=== PATIENT | male | born 1940 | race Caucasian/White ===

== ENCOUNTER 2016-10-04 13:08 | Inpatient (IN) ==
--- NOTE | 2016-10-04 13:40 | Emergency Department Note ---
Disposition Clinical Impression: CVA, old, ataxia, Ataxia, MAYKEL (acute kidney injury) CVA (cerebral vascular accident) Qualifiers: CVA mechanism: unspecified Qualified Code(s): I63.9 - Cerebral infarction, unspecified Disposition: Admitted As Inpatient Condition: Good Time of Disposition: 18:37 Dizziness HPI - General Chief Complaint: ED Dizziness Stated Complaint: Dizzy Time Seen by Provider: 10/04/16 13:12 Source: patient, EMS Mode of arrival: EMS Limitations: no limitations Nursing Notes Reviewed: Yes Vital Signs Reviewed: Yes - History of Present Illness HPI Narrative: 75-year-old male with a past history of hypertension, diabetes, CVAs, CABG ( ) presents to the ED via EMS with sudden onset dizziness. Patient lets that the half-way performing physical therapy and at the end of the session was asked to get up to do the last exercise. From a sitting position as he was starting to stand began to experience vertigo. He describes as the room is swimming. He denies any associated lightheadedness, feelings of passing out, chest pain, shortness of breath. Denies any changes in vision. Since then symptoms have subsided. Worse with sudden movements of the head particularly with extension. No sequelae of his CVAs he reports. Typically able to walk without much difficulty but since therapy unable to stand. He takes Coumadin. Denies any fall or loss of consciousness. Pt Subjective Complaint: dizziness, difficulty walking Onset (ago): hour(s) Timing: sudden onset Description: sense of movement, "room spinning" Improves with: remaining still Worsens with: movement, position Associated symptoms: Reports: ataxia, weakness. Denies: chest pain, confusion, diaphoresis, fever, chills, shortness of breath, syncope, vision changes, nausea , vomiting, palpitations - Related Data Home Medications Medication Instructions Recorded Confirmed Aspirin 81 mg PO DAILY 07/06/16 10/04/16 Atorvastatin [Lipitor] 10 mg PO HS 07/06/16 10/04/16 Carvedilol 3.125 mg PO BID 07/06/16 10/04/16 Ferrous Sulfate 325 mg PO DAILY 07/06/16 10/04/16 Insulin Glargine [Lantus] 10 unit SQ HS 07/06/16 10/04/16 Lisinopril 2.5 mg PO DAILY 07/06/16 10/04/16 Nitroglycerin [Nitrostat] 0.4 mg SL Q5M PRN 07/06/16 10/04/16 Omeprazole [PriLOSEC] 20 mg PO DAILY 07/06/16 10/04/16 Paroxetine HCl [Paxil] 10 mg PO QAM 07/06/16 10/04/16 Benzocaine/Menthol [Chloraseptic 1 each MM Q2H PRN 10/04/16 10/04/16 Max Lozenge] Allergies Allergy/AdvReac Type Severity Reaction Status Date / Time morphine AdvReac Unknown Verified 10/04/16 15:00 All systems ED: reviewed and negative except as stated. Constitutional: Denies: fever, chills Eyes: Denies: vision change Cardiovascular: Denies: chest pain, palpitations Respiratory: Denies: cough, dyspnea Gastrointestinal: Denies: abdominal pain, nausea, vomiting Musculoskeletal: Denies: back pain, neck pain Neurological: Reports: abnormal gait, vertigo. Denies: headache, weakness, numbness, confusion Past Medical History - Past Medical History Attestation: Yes The following information was validated with the patient. Source: patient Medical history: Reports: coronary artery disease, diabetes, hyperlipidemia Surgical history: Reports: other (CABG, partial amputation of the left foot.) Psychiatric history: Reports: no psych history - Social History Smoking Status: Former smoker Smokeless Tobacco Status: No Alcohol use: Reports: none Drug use: Reports: none Physical Exam - General Limitations: no limitations General appearance: alert, in no apparent distress - Head Head exam: atraumatic, normocephalic, normal inspection - Eye Eye exam: Present: normal appearance, PERRL, EOMI. Absent: scleral icterus, nystagmus - ENT ENT exam: normal exam, normal oropharynx, mucous membranes moist, TM's normal bilaterally - Neck Neck exam: Present: normal inspection, full ROM, trachea midline. Absent: tenderness - Chest Chest inspection: Present: normal inspection, symmetric chest wall rise. Absent : tenderness - Respiratory Respiratory exam: Present: normal lung sounds bilaterally. Absent: respiratory distress, wheezes - Cardiovascular Cardiovascular exam: Present: regular rate, normal rhythm, normal heart sounds. Absent: systolic murmur, diastolic murmur - Abdominal Exam Abdominal exam: Present: soft, Non-Tender, normal bowel sounds. Absent: tenderness, distention, guarding, rebound, rigidity - Extremities Exam Extremities exam: Present: normal inspection, full ROM, normal capillary refill. Absent: tenderness, pedal edema, calf tenderness - Back Exam Back exam: Present: normal inspection, full ROM. Absent: tenderness, vertebral tenderness - Neurological Exam Neurological exam: Present: alert, oriented X3, CN II-XII intact - Expanded Neurological Exam Patient oriented to: Present: person, place, time Speech: Present: fluid speech Cranial nerves: EOM function (II, III, IV, ): Normal, facial sensation (V): Normal, facial palsy (VII): Normal, spinal accessory function (XI): Normal, tongue deviation (XII): Normal Cerebellar function: finger to nose: Normal, heel to benitez: Normal Cerebellar function: ataxic gait Motor strength - LUE: 5/5 Motor strength - RUE: 5/5 Motor strength - LLE: 5/5 Motor strength - RLE: 5/5 Upper motor neuron exam: gabino neglect: Absent bilaterally, pronator drift: Absent bilaterally Sensory exam upper extremity: light touch: Normal Sensory exam lower extremity: light touch: Normal - Psychiatric Psychiatric exam: Present: normal affect, normal mood - Skin Skin exam: Present: warm, dry, intact, normal color Course Course Narrative: 75-year-old male history of cardiac bypass, CVA, insulin-dependent diabetes mellitus presents to the ED with sudden onset vertigo. This occurred suddenly at the end of his physical therapy session. Scribes as the room spinning. Currently he is unable to stand under his own power due to the dizziness. History of CVA in the past without any sequela. Neurologic exam is normal without any focal neural deficits. Normal finger to nose and heel to benitez without dysmetria. He does not have a vertical or horizontal nystagmus. Concerning for possible cerebellar or posterior infarct. Given his history of CVAs and coronary artery disease will check basic labs, troponin, EKG, and MRI of brain pending clearance. Patient is in agreement with plan. He is currently asymptomatic at rest and denies any nausea. - Reevaluation(s) Reevaluation #1: Repeat neurologic exam's unremarkable. However he continues to be unsteady upon standing. Brain MRI does not show an acute infarct, there are however chronic infarcts that appear nuisances prior MRI and likely visit October 2015. His creatinine is also elevated at 2 above his baseline. Troponins negative. EKG does not reveal any acute abnormalities. Impression CVA, MAYKEL, exertional syncope. He may need possible further workup with unsteady gait and dizziness. He comes from nursing rehab facility. He has received a total of 1L of fluids. Brain MRI 10/04/16 13:52 IMPRESSION: 1. No evidence of an acute infarct. 2. Chronic infarcts are noted in basal ganglia, thalami, and right paramidline of the negrito. The chronic infarct in the right paramidline of the negrito is new since the previous MRI on 04/08/2015. 3. There is cerebral and cerebellar parenchymal volume loss with moderate-severe chronic microvascular white matter ischemic disease. 4. There are multifocal areas of blooming artifact identified in bilateral cerebral hemispheres, likely related to sequela of small microhemorrhages, usually related to hypertension. 5. Stable ventriculomegaly. While this is likely related to involutional change, normal pressure hydrocephalus cannot be excluded. D/ / 10/04/2016 16:49:26 Tarun Strickland MD / [facility] Interpreting Provider: Tarun Strickland MD Time: 18:00 - Consultations Consultation #1: Spoke with Dr. Strickland, radiologist, regarding the MRI read of blooming artifact and new infarct in the right paramidline of the negrito since previous MRI 2014. The negrito infarct is chronic and likely occurred since last visit in 2015. Blooming artifact is likely due to nursing home hypertension and is common in this MRI sequence. Time: 17:15 Consultation #2: Spoke with on-call hospitalist aaron Mcdonald to admit for CVA, Vertigo, MAYKEL, exertional syncope. No further orders at this time Time: 18:03 Vital Signs Temperature 97.7 F 10/04/16 13:10 Pulse Rate 53 10/04/16 13:10 Respiratory Rate 18 10/04/16 13:10 Blood Pressure 130/68 10/04/16 13:10 O2 Sat by Pulse Oximetry 100 10/04/16 13:10 Temperature 97.7 F 10/04/16 13:10 Pulse Rate 65 10/04/16 18:27 Respiratory Rate 16 10/04/16 18:27 Blood Pressure 170/119 10/04/16 18:27 O2 Sat by Pulse Oximetry 97 10/04/16 18:27 Oxygen Delivery Oxygen Delivery Room Air Dizziness - Medical Records Medical records reviewed: Yes I reviewed the patient's medical records. - Lab Data Lab results reviewed: Yes I reviewed the patient's lab results. Result diagrams: 10/04/16 13:56 10/04/16 13:56 Lab Results 10/04/16 10/04/16 10/04/16 Range/Units 13:56 13:56 13:57 WBC 8.2 (4.3-11.1) K/mcL RBC 3.77 L (4.19-5.50) M/mcL Hgb 11.2 L (12.9-16.9) g/dL Hct 34.3 L (37.5-50.1) % MCV 91.0 (83.0-100.0) fL MCH 29.7 (28.0-33.3) pg MCHC 32.7 (31.6-35.5) g/dL RDW 12.8 (11.5-14.5) % Plt Count 181 (140-400) K/mcL MPV 10.0 (9.4-12.4) fL Immature Gran % 0.4 (0-4) % Seg Neutrophils % 73.7 % Lymphocytes % 16.1 % Monocytes % 5.5 % Eosinophils % 3.8 % Basophils % 0.5 % Neutrophils # 6.1 (1.6-8.9) K/mcL Lymphocytes # 1.3 (0.6-4.6) K/mcL Monocytes # 0.5 (0.0-1.3) K/mcL Eosinophils # 0.3 (0.0-0.6) K/mcL Basophils # 0.0 (0.0-0.2) K/mcL Sodium 139 (136-145) mEq/L Potassium 5.2 H (3.5-4.5) mEq/L Chloride 108 (98-109) mEq/L Carbon Dioxide 26 (19-29) mEq/L BUN 39 H (8-26) mg/dL Creatinine 2.01 H (0.72-1.25) mg/dL Est GFR ( Amer) 40 L (> 60) Est GFR (Non-Af Amer) 33 L (> 60) BUN/Creatinine Ratio 19 (6-26) Glucose 128 H (70-99) mg/dL Calculated Osmolality 299 (280-300) Calcium 8.9 (8.6-10.8) mg/dL Troponin I 0.00 (0-0.03) ng/mL - Radiology Data Radiology results reviewed: Yes I reviewed the patient's radiology results. Brain MRI 10/04/16 13:52 IMPRESSION: 1. No evidence of an acute infarct. 2. Chronic infarcts are noted in basal ganglia, thalami, and right paramidline of the negrito. The infarct in the right paramidline of the negrito is new since the previous MRI on 04/08/2015. 3. There is cerebral and cerebellar parenchymal volume loss with moderate-severe chronic microvascular white matter ischemic disease. 4. There are multifocal areas of blooming artifact identified, likely related to sequela of small microhemorrhages. 5. Stable ventriculomegaly. While this is likely related to involutional change, normal pressure hydrocephalus cannot be excluded. D/ / 10/04/2016 16:49:26 Tarun Strickland MD / [facility] Interpreting Provider: Tarun Strickland MD - EKG Data EKG attestation: Yes I reviewed and interpreted this EKG. EKG results narrative: EKG performed 1323 sinus bradycardia with first-degree AV block 50 bpm [place] interval is prolonged 212 Q waves in inferior leads, other intervals are within normal limits QRS 112 QT QTC 468 443. Compared to old EKG performed 06/30/2016 shows consistent findings sinus rhythm with consistent Q waves in inferior leads. No acute ischemic changes. Attestation Statement - Attestation Attestation: I examined this patient and my medical decision-making was reviewed with the NURSE'S ASSISTANT/PA/Advanced Practice Nurse/Resident Physician. I agree with the documented findings, disposition and treatment plan as described except to the extent set forth below. Patient presents to the emergency department with a chief complaint of dizziness. Send onset today while doing his rehabilitation at his nursing facility. States he was able to walk. History of stroke. Exam is awake and alert and neurologically intact. His extremities. No nystagmus. Plan. Cardiac workup with MRI.
[2016-10-04 14:10] LABS: Basophils % 0.5 %; Eosinophils # 0.3 K/mcL (0.0-0.6); Eosinophils % 3.8 %; Hematocrit 34.3 % (37.5-50.1); Hemoglobin 11.2 g/dL (12.9-16.9); Immature Granulocytes % 0.4 % (0-4); Lymphocytes # 1.3 K/mcL (0.6-4.6); Lymphocytes % 16.1 %; Mean Corpuscular HGB Conc 32.7 g/dL (31.6-35.5); Mean Corpuscular Hemoglobin 29.7 pg (28.0-33.3); Monocytes # 0.5 K/mcL (0.0-1.3); Monocytes % 5.5 %; Neutrophils # 6.1 K/mcL (1.6-8.9); Platelet Count 181 K/mcL (140-400); Red Blood Count 3.77 M/mcL (4.19-5.50); Red Cell Distribution Width 12.8 % (11.5-14.5); Segmented Neutrophils % 73.7 %
[2016-10-04 14:25] LABS: Calcium 8.9 mg/dL (8.6-10.8); Potassium 5.2 mEq/L (3.5-4.5)
[2016-10-04] MEDS ORDERED: 0.9 % Sodium Chloride 1,000 ML IVC ONE (14:48)
--- NOTE | 2016-10-04 21:33 | Internal Med History&Physical ---
Date of Encounter: 10/04/16 Time of Encounter: 21:30 Assessment and Plan (1) TIA (transient ischemic attack) Current visit: Yes Status: Acute Unclear etiology, but given patient's cardiac history, will obtain echocardiogram and carotid dopplers Consult neurology, appreciate recommendations Orthostatics obtained in ED was negative for hypotension Will do metabolic workup with B12, Folate, TSH PT/OT evaluation Qualifiers: Qualified Code(s): G45.9 - Transient cerebral ischemic attack, unspecified (2) Hypertension Current visit: Yes Status: Acute Will allow for permissive hypertension in setting of TIA He does have home Lisinopril and Coreg which are currently being held Qualifiers: Hypertension type: essential hypertension Qualified Code(s): I10 - Essential (primary) hypertension (3) CKD (chronic kidney disease) stage 3, GFR 30-59 ml/min Current visit: Yes Status: Chronic Cr of 2.01 upon admission, close to his baseline of 1.8 He does appear mildly dehydrated and has been started on maintenance fluids at 75 ml/hr over 1 L Repeat BMP in AM and avoid nephrotoxic agents (4) Frequent falls Current visit: No Status: Chronic Likely multifactorial given history of CVA and diabetic neuropathy Will obtain metabolic workup with B12, Folate, TSH (5) Anemia of chronic disease Current visit: Yes Status: Chronic Stable, no signs/symptoms of bleeding Will recheck levels in AM (6) DVT prophylaxis Current visit: No Status: Acute Heparin 5000 units BID Internal Medicine - H&P: HPI Chief complaint: Dizziness Admitted From: Long-term Nursing Facility Plans for Post Hospital Care: Transfer Skilled Nursing Care History of present illness: Mr. Rivera is a 75 year old male who presents to the emergency department with dizziness. He currently resides in [facility] and states that he developed sudden onset dizziness when he was performing physical therapy earlier this morning. He describes starting off at a sitting position and while trying to stand he became dizzy and felt the room was spinning. He does admit to having a difficult hearing out of both ears but denies any changes in his vision, losing consciousness, headache, chest pain, shortness of breath, nausea. He never had anything like this happen to past but does report a history of migraines and sustained a stroke 4 years ago without any residual deficits. He also reports a history of frequent falls, claiming to have fallen once to twice a month over the past 5 years. He reports the falls are a result of losing balance, and denies ever losing any consciousness or tripping. Of note , he does have history of bypass in 1989 and also in the but he is unsure of what time and will have stent was placed. He claims he was previously on Coumadin over a year ago for atrial fibrillation, but there is no documentation of this. Past Med Surg Social Fam HX - Past Medical History Medical history: coronary artery disease, diabetes, hyperlipidemia Psychiatric history: no psych history - Past Surgical History Surgical History: other - Social History Smoking Status: Former smoker Smokeless Tobacco Status: No Alcohol use: none Drug use: none - Family History Mother Living Status: Hx Family Endocrine Disorder: Yes (DM) Internal Medicine - H&P: Meds Aspirin 81 mg PO DAILY 07/06/16 [History] Atorvastatin [Lipitor] 10 mg PO HS 07/06/16 [History] Carvedilol 3.125 mg PO BID 07/06/16 [History] Ferrous Sulfate 325 mg PO DAILY 07/06/16 [History] Insulin Glargine [Lantus] 10 unit SQ HS 07/06/16 [History] Lisinopril 2.5 mg PO DAILY 07/06/16 [History] Nitroglycerin [Nitrostat] 0.4 mg SL Q5M PRN 07/06/16 [History] Omeprazole [PriLOSEC] 20 mg PO DAILY 07/06/16 [History] Paroxetine HCl [Paxil] 10 mg PO QAM 07/06/16 [History] Benzocaine/Menthol [Chloraseptic Max Lozenge] 1 each MM Q2H PRN 10/04/16 [ History] Allergies morphine Adverse Reaction (Verified 10/04/16 15:00) Unknown via ECF list All Systems PM: A 10-system review of systems was performed and is negative for pertinent findings except as documented above in the HPI. - Constitutional Constitutional: no chills, no fever(s), no night sweats - EENT Eyes: no change in vision, no discharge, no pain, no photophobia Ears: decreased hearing (chronic), no ear discharge, no ear pain, no tinnitus Nose, mouth and throat: no dysphagia, no nasal discharge, no neck pain, no sore throat - Cardiovascular Cardiovascular ROS IM: no chest pain, no diaphoresis, no dyspnea, no lightheadedness, no palpitations, no syncope - Respiratory Respiratory: no cough, no dyspnea, no wheezing, no excessive phlegm production - Gastrointestinal Gastrointestinal: no abdominal pain, no diarrhea, no hematemesis, no hematochezia, no melena, no nausea, no vomiting - Musculoskeletal Musculoskeletal ROS IM: no numbness, no tingling - Integumentary Integumentary IM: no rash, no unusual bruising - Neurological Neurological ROS: vertigo, no confusion, no convulsions, no focal weakness, no numbness, no tingling, no tremor(s), no weakness - Hematologic/Lymphatic Hematologic/Lymphatic: no easy bruising - Constitutional Vitals: Temp Pulse Resp BP Pulse Ox 97.6 F 47 18 179/72 98 10/04/16 20:03 10/04/16 20:03 10/04/16 20:03 10/04/16 20:03 10/04/16 20:03 General appearance: Present: cooperative, A&O X 3, pleasant, no acute distress, answers questions appropriately - Head Head exam: Present: atraumatic, normocephalic - Eye Eye exam: Present: EOMI, PERRL, conjuntiva pink, sclera anicteric. Absent: nystagmus - Neck Neck exam general surgery: Present: supple, trachea midline. Absent: lymphadenopathy - Respiratory Respiratory exam: Present: CTAB. Absent: accessory muscle use, rales, rhonchi, wheezes - Cardiovascular Cardiovascular exam: Present: bradycardia (regular rhythm), +S1, +S2. Absent: diastolic murmur, gallop, rubs, systolic murmur - GI/Abdominal GI/Abdominal exam: Present: normal bowel sounds, soft, no peritoneal signs. Absent: distended, tenderness - Extremities Exam Extremities exam: Present: warm, radial pulses palpable and symetrical. Absent : calf tenderness, cyanotic, pedal edema Additional comments: partial amputation of 4th and 5th digits of right foot, all toes on left foot amputated due to diabetic ulcers - Neurological Exam Neurological exam: Present: alert, CN II-XII intact, oriented X3, no focal deficits, strengths equal and symetr throughout (5/5 bilaterally upper and lower extremities). Absent: motor sensory deficit, pronater drift, facial droop , speech deficit - Expanded Neurological Exam Neurological exam expanded: Absent: expressive aphasia, inattentive Patient oriented to: Present: person, place, time Speech: Present: fluid speech Cranial Nerves: EOM's intact PM: Normal, nystagmus PM: Normal, tongue deviation PM: Normal Cerebellar function: finger to nose: Normal, heel to benitez: Normal Upper motor neuron: Paul neglect: Normal, pronator drift: Normal Neuro motor strength exam: LUE: 5, RUE: 5, LLE: 5, RLE: 5 Coma Scale Eye Opening: Spontaneous Coma Scale Motor Response: Obeys Commands Coma Scale Verbal Response: Oriented Coma Scale Total: 15 - Skin Skin exam: Present: dry, intact Internal Med - H&P Results - Labs CBC & Chem 7: 10/04/16 13:56 10/04/16 13:56
[2016-10-04] MEDS ORDERED: Naloxone 0.4 MG/ML INJ IVP PRN (21:41)
[2016-10-04] MEDS ORDERED: Ondansetron ODT 4 MG TAB.RAPDIS SL PRN (21:41)
[2016-10-04] MEDS ORDERED: Dextrose Gel 15 GM PO PRN ×2 (21:41)
[2016-10-04] MEDS ORDERED: Acetaminophen 325 MG TABLET PO PRN (21:41)
[2016-10-04] MEDS ORDERED: D5% in Water 1,000 ML IV PRN (21:41)
[2016-10-04] MEDS ORDERED: *HR* Dextrose 50 % in Water (Syg) 50 ML SYRINGE IVP PRN (21:41)
[2016-10-04] MEDS ORDERED: Nitroglycerin 0.4 MG TAB.SUBL SL PRN (21:51)
[2016-10-04] MEDS ORDERED: 0.9 % Sodium Chloride 1,000 ML IVC SCH (23:15)
[2016-10-04] MEDS ORDERED: Calcium Gluconate 1,000 MG in D5% in Water 100 ML IVPB ONE (23:18)
--- NOTE | 2016-10-04 23:30 | Event Note ---
Date of Encounter: 10/04/16 Time of Encounter: 23:20 Patient seen and examined with medical chemist. Patient presented with dizziness which he described at the spinning sensation, gate unsteadiness. The symptoms lasted till he arrived to the emergency room a few hours. He was hypertensive. Symptoms are suggestive of posterior circulation ischemia. Cerebellar signs were normal during my exam of the patient at 11 PM. I suspect that the symptoms are due to posterior circulation ischemia. MRI of the brain was performed shows no acute stroke. We will hold the blood pressure medications and allow for permissive hypertension. Check echocardiogram and carotid Doppler's. Patient has been on Coumadin for atrial fibrillation however he has been taken off it. It seems patient has frequent falls and that is probably the cause for discontinuation of Coumadin. We will check echocardiogram carotid Doppler's. Physical therapy occupational therapy healthcare social worker speech therapy will see the patient. Neurology consultation. Continuous telemetry monitoring to see the patient goes into atrial fibrillation.
--- NOTE | 2016-10-05 04:05 | Electrocardiograph Report ---
[facility] Test Date: 2016-10-04 Pat Name: Malick Rivear Department: 105 Room: 2NE34 Gender: M Services Delivery Driver: : [id number] Requested By: Gerardo Perrin Order Number: [id number] Reading MD: Oskar Gavin MD Measurements Intervals [place] Rate: 50 P: 62 CA: 212 QRS: -19 QRSD: 112 T: 53 QT: 468 QTc: 443 Interpretive Statements SINUS BRADYCARDIA Electronically Signed On 10-05-2016 4:03:26 EST by Oskar Gavin MD
[2016-10-05 05:28] LABS: Basophils % 0.5 %; Eosinophils # 0.4 K/mcL (0.0-0.6); Eosinophils % 4.9 %; Hematocrit 33.3 % (37.5-50.1); Hemoglobin 11.2 g/dL (12.9-16.9); Immature Granulocytes % 0.3 % (0-4); Lymphocytes # 1.2 K/mcL (0.6-4.6); Lymphocytes % 15.6 %; Mean Corpuscular HGB Conc 33.6 g/dL (31.6-35.5); Mean Corpuscular Hemoglobin 29.9 pg (28.0-33.3); Mean Platelet Volume 10.2 fL (9.4-12.4); Monocytes # 0.7 K/mcL (0.0-1.3); Monocytes % 9.1 %; Neutrophils # 5.4 K/mcL (1.6-8.9); Platelet Count 161 K/mcL (140-400); Red Blood Count 3.74 M/mcL (4.19-5.50); Red Cell Distribution Width 12.7 % (11.5-14.5); Segmented Neutrophils % 69.6 %
[2016-10-05] MEDS: *HR* Heparin 5,000 UNIT/ML VIAL SQ SCH (05:28)
[2016-10-05 05:58] LABS: Calcium 8.7 mg/dL (8.6-10.8); Magnesium 1.7 mg/dL (1.6-2.6); Phosphorous 3.3 mg/dL (2.3-4.7); Potassium 4.2 mEq/L (3.5-4.5)
[2016-10-05 06:06] LABS: Thyroid Stimulating Hormone 2.44 mcIU/mL (0.350-4.840)
[2016-10-05 06:18] LABS: Folate 10.3 ng/mL (7.0-31.4)
[2016-10-05] MEDS: Insulin LISPRO 300 UNITS/3 ML VIAL SQ SCH ×3 (07:30→16:47)
--- NOTE | 2016-10-05 10:01 | Internal Med Progress Note ---
Date of Encounter: 10/05/16 Time of Encounter: 09:00 - Assessment and plan (1) Vertigo Current Visit: Yes Status: Acute Assessment and plan: Etiology is undetermined. MRI negative for acute stroke. Will follow echo and carotid duplex. Continue cardiac monitoring. Symptoms had improved today. Most likely due to recent URI (2) Diabetes Current Visit: Yes Status: Acute Assessment and plan: Covered by sliding scale Qualifiers: Diabetes mellitus type: type 2 Diabetes mellitus complication status: with kidney complications Diabetes mellitus complication detail: with chronic kidney disease Diabetes mellitus correction insulin use: with correction use Chronic kidney disease stage: stage 3 (moderate) Qualified Code(s): E11.22 - Type 2 diabetes mellitus with diabetic chronic kidney disease; N18.3 - Chronic kidney disease, stage 3 (moderate); Z79.4 - prison (current) use of insulin (3) Hypertension Current Visit: Yes Status: Acute Assessment and plan: Continue home medication. Closely monitor blood pressure Qualifiers: Hypertension type: essential hypertension Qualified Code(s): I10 - Essential (primary) hypertension (4) CAD (coronary artery disease) Current Visit: No Status: Chronic Assessment and plan: Continue home medication. Patient is on aspirin and statin. No beta victor manuel because patient has bradycardia Qualifiers: Coronary Disease-Associated Artery/Lesion type: bypass graft [place] vs. transplanted heart: [place] heart Associated angina: without angina Qualified Code(s): I25.810 - Atherosclerosis of coronary artery bypass graft(s) without angina pectoris (5) CKD (chronic kidney disease) Current Visit: No Status: Chronic Assessment and plan: Stable. Creatinine is at his baseline Qualifiers: Chronic kidney disease stage: stage 3 (moderate) Qualified Code(s): N18.3 - Chronic kidney disease, stage 3 (moderate) (6) Frequent falls Current Visit: No Status: Chronic Assessment and plan: PTOT evaluation. - Subjective Interval history: Patient is a 75-year-old male admitted from senior care for vertigo. Past medical history is significant for CAD, diabetes and hyperlipidemia, hypertension. Patient was seen and examined, has no further vertigo or dizziness, denies headache, lightheaded. Patient has no neurology deficit. Vital signs stable. Patient told me he has a recent URI. Will continue to closely monitor patient with cardiac monitoring. Follow-up echo and carotid duplex results. - Constitutional Vitals: Temp Pulse Resp BP Pulse Ox 97.9 F 53 16 150/73 97 10/05/16 07:54 10/05/16 07:54 10/05/16 07:54 10/05/16 07:54 10/05/16 07:54 General appearance: Present: cooperative, A&O X 3, pleasant, no acute distress, answers questions appropriately - Head Head exam: Present: atraumatic, normocephalic - Eye Eye exam: Present: PERRL, conjuntiva pink, sclera anicteric Pupils: Present: PERRL - Neck Neck exam general surgery: Present: supple, trachea midline. Absent: lymphadenopathy - Respiratory Respiratory exam: Present: CTAB. Absent: accessory muscle use, rales, rhonchi, wheezes - Cardiovascular Cardiovascular exam: Present: RRR, +S1, +S2. Absent: diastolic murmur, gallop, rubs, systolic murmur - GI/Abdominal GI/Abdominal exam: Present: normal bowel sounds, soft, no peritoneal signs. Absent: distended, tenderness - Extremities Exam Extremities exam: Present: warm, radial pulses palpable and symetrical. Absent : calf tenderness, cyanotic, pedal edema - Neurological Exam Neurological exam: Present: CN II-XII intact, oriented X3, no focal deficits. Absent: pronater drift, facial droop, speech deficit - Skin Skin exam: Present: dry, intact Internal Medicine: Result - Labs CBC & Chem 7: 10/05/16 05:09 10/05/16 05:09 Consult Discharge Plan - Plan Referrals: NO,PCP [Primary Care Provider] -
--- NOTE | 2016-10-05 10:43 | Neurology - Consult Note ---
<Fidel Lemon - Last Filed: 10/05/16 13:28> Date of Encounter: 10/05/16 Time of Encounter: 10:40 Assessment and Plan (1) TIA (transient ischemic attack) Current Visit: Yes Status: Acute Patient's symptoms slowly reserved to dizziness as well as slight hearing loss. This may be associated with vertigo. His MRI was negative for acute infarct. There were chronic infarcts noted on MRI which the patient admits to CVA roughly 4 years ago. The patient has no focalized deficits noted at this time. He has no ataxic movements noted on examination. Given vertigo we will add MRA neck to determine if there are any posterior signs of infarct. Current echocardiogram and carotid Doppler are pending. The patient is currently on a statin as well as 81 mg aspirin daily. We will consider increasing his aspirin dosage to 325 daily. We will continue to monitor patient and follow-up patient. Qualifiers: Transient cerebral ischemia type: unspecified Qualified Code(s): G45.9 - Transient cerebral ischemic attack, unspecified (2) CVA (cerebral vascular accident) Current Visit: Yes Status: Chronic Noted 4 years ago. Qualifiers: CVA mechanism: unspecified Qualified Code(s): I63.9 - Cerebral infarction, unspecified (3) Hypertension Current Visit: Yes Status: Chronic Continue his home antihypertensives at this time. Qualifiers: Hypertension type: essential hypertension Qualified Code(s): I10 - Essential (primary) hypertension (4) CKD (chronic kidney disease) stage 3, GFR 30-59 ml/min Current Visit: Yes Status: Chronic Continue to monitor. (5) Insulin dependent diabetes mellitus Current Visit: No Status: Chronic History of Present Illness Chief complaint: Dizziness HPI: Mr. Rivera is a 75 year old male with history of CVA, hypertension, CAD, arrived to [facility] emergency department from [facility] where the patient currently resides. The patient states that during physical therapy he began experiencing a mild amount of dizziness with associated hearing loss that was acute. It was mild at that time. The patient denies any focalized deficits other than the dizziness and hearing loss. The patient denies any weakness, paresthesias, headache. He states he remained lucid during the event and states that he remembers the entire day before and after including the event. The patient was brought to the emergency department where he had a workup and was admitted to the hospital for further during this workup. Patient's MRI demonstrated no acute infarct but did note numerous chronic infarcts. The patient does state that he had a CVA roughly 4 years ago. The patient denies any previous episodes of dizziness or vertigo in the past. He denies any recent illness. The patient answer all questions correctly and performed all commands correctly. Patient denies any other complaints at this time. He states his dizziness and vertigo like symptoms have resolved. The patient is apparently taking aspirin as well as statin. Past Med Surg Social Fam HX - Past Medical History Attestation: Yes The following information was validated with the patient. Source: patient, old records reviewed Medical history: coronary artery disease, CVA, diabetes, hyperlipidemia Psychiatric history: no psych history - Past Surgical History Surgical History: other - Social History Smoking Status: Former smoker Smokeless Tobacco Status: No Alcohol use: none Drug use: none Current living situation: [facility] Activity Level: Independent ambulation, Very active - Family History Mother Living Status: Hx Family Endocrine Disorder: Yes (DM) Medications and Allergies Aspirin 81 mg PO DAILY 07/06/16 [History] Atorvastatin [Lipitor] 10 mg PO HS 07/06/16 [History] Carvedilol 3.125 mg PO BID 07/06/16 [History] Ferrous Sulfate 325 mg PO DAILY 07/06/16 [History] Insulin Glargine [Lantus] 10 unit SQ HS 07/06/16 [History] Lisinopril 2.5 mg PO DAILY 07/06/16 [History] Nitroglycerin [Nitrostat] 0.4 mg SL Q5M PRN 07/06/16 [History] Omeprazole [PriLOSEC] 20 mg PO DAILY 07/06/16 [History] Paroxetine HCl [Paxil] 10 mg PO QAM 07/06/16 [History] Benzocaine/Menthol [Chloraseptic Max Lozenge] 1 each MM Q2H PRN 10/04/16 [ History] Allergies morphine Adverse Reaction (Verified 10/04/16 15:00) Unknown via ECF list All Systems: A 10-system review of systems was performed and is negative for pertinent findings except as documented above in the HPI. Review of Systems: The patient denies any complaints at this time. Physical Examination - Vital Signs Vital Signs: Initial Vital Signs Temp Pulse Resp BP Pulse Ox 97.7 F 53 18 130/68 100 10/04/16 13:10 10/04/16 13:10 10/04/16 13:10 10/04/16 13:10 10/04/16 13:10 - Constitutional General appearance: comfortable - Neurologic Sensorimotor examination: intact Detailed motor examination: full strength in all major muscle groups Motor examination - right side: 5/5: deltoids, biceps, triceps, wrist flexion, wrist extension, timber faller, hip flexors, tibialis Anterior, quadriceps, toe extension (EHL), plantarflexion Motor examination - left side: 5/5: deltoids, biceps, triceps, wrist flexion, wrist extension, hip flexors, timber faller, quadriceps, tibialis Anterior, toe extension (EHL), plantarflexion Detailed sensory examination: intact Reflexes: Biceps: 2+, Brachioradialis: 2+, Patella: 2+, Achilles: 2+ Mental Status Examination: awake, alert, oriented to person, oriented to place, oriented to time, follows commands appropriately, answers questions appropriately, no agnosia, no aphasia, no aproxia Cranial nerve examination: PERRL, EOMI, visual lambert intact, corneal reflexes brisk symmetrically, sensory to face intact, mastication intact, no facial asymmetry is present, no dysarthria, hearing is intact symmetrically, soft palate elevates bilaterally upon phonation, gag reflex intact, flexes SCM and trapezius muscles symmetrically with full power, tongue protrudes midline, no atrophy or facial fasiculations present Cerebellar examination: no dysmetria, performs finger to nose and heel to benitez symmetrically without ataxia, no gait ataxia, no truncal ataxia, no difficulty with rapid alternating movements Results - Laboratory Findings CBC and BMP: 10/05/16 05:09 10/05/16 05:09 Abnormal lab findings: Abnormal lab results RBC 3.74 M/mcL (4.19-5.50) L 10/05/16 05:09 Hgb 11.2 g/dL (12.9-16.9) L 10/05/16 05:09 Hct 33.3 % (37.5-50.1) L 10/05/16 05:09 BUN 32 mg/dL (8-26) H 10/05/16 05:09 Creatinine 1.63 mg/dL (0.72-1.25) H 10/05/16 05:09 Est GFR ( Amer) 50 (> 60) L 10/05/16 05:09 Est GFR (Non-Af Amer) 42 (> 60) L 10/05/16 05:09 - Attending Attestation I examined this patient and my medical decision-making was reviewed with the Resident Physician. I agree with the documented findings, disposition and treatment plan as described except to the extent set forth below. Consult Discharge Plan - Plan Referrals: NO,PCP [Primary Care Provider] - <[place] I - Last Filed: 10/05/16 15:45> Assessment and Plan (1) TIA (transient ischemic attack) Current Visit: Yes Status: Acute I examined this patient and my medical decision-making was reviewed with the Resident Physician. I agree with the documented findings, disposition and treatment plan as described except to the extent set forth below. no focal findings on exam seem to be back to normal, in order to make sure there is no evidence of any posterior circulation abnormality I would recommend MRA A or CT angiogram of the neck to make sure no critical stenosis in the posterior circulation, with his kidney function may be difficult to give the contrast perhaps it could be done without contrast Radha Moncada MD Qualifiers: Transient cerebral ischemia type: unspecified Qualified Code(s): G45.9 - Transient cerebral ischemic attack, unspecified History of Present Illness HPI: Mr. Rivera is a 75 year old male All Systems: A 10-system review of systems was performed and is negative for pertinent findings except as documented above in the HPI. Physical Examination - Vital Signs Vital Signs: Initial Vital Signs Temp Pulse Resp BP Pulse Ox 97.7 F 53 18 130/68 100 10/04/16 13:10 10/04/16 13:10 10/04/16 13:10 10/04/16 13:10 10/04/16 13:10 Results - Laboratory Findings CBC and BMP: 10/05/16 05:09 10/05/16 05:09 Abnormal lab findings: Abnormal lab results RBC 3.74 M/mcL (4.19-5.50) L 10/05/16 05:09 Hgb 11.2 g/dL (12.9-16.9) L 10/05/16 05:09 Hct 33.3 % (37.5-50.1) L 10/05/16 05:09 BUN 32 mg/dL (8-26) H 10/05/16 05:09 Creatinine 1.63 mg/dL (0.72-1.25) H 10/05/16 05:09 Est GFR ( Amer) 50 (> 60) L 10/05/16 05:09 Est GFR (Non-Af Amer) 42 (> 60) L 10/05/16 05:09
[2016-10-05] MEDS: Aspirin 81 MG TAB.CHEW PO SCH (11:40)
--- NOTE | 2016-10-05 12:20 | ECHO - Doppler Report ---
Echo with Saline Contrast Name: Malick Rivera Date of Study: 10/05/2016 Date: 1940 Ht: 69.0 in Medical Record#: [id number] Age: 75 Wt: 221.0 lb Gender: Male BSA: 2.16 Order #: [id number] Location: [facility] Room #: [id number] Reading Physician: Lelo Bell DO Cotton Breeder: Tim Torres RN Ordering Physician: Alonzo Olivera DO Primary Physician: None Indications: Transient Ischemic Attack Impressions: LVEF 65%. Normal left ventricular size and systolic function. There is evidence of mild diastolic dysfunction of the left ventricle. Dilated RV with normal function. No significant valvular dysfunction. No pulmonary hypertension. No PFO with saline contrast. Left Ventricular Wall Motion: Rest Echo Findings All wall segments showed normal motion. Findings: Study Quality * Technically adequate exam. ECG Findings * Sinus bradycardia. Left Ventricle * Normal LV chamber size, wall thickness and function. * Mild left ventricular diastolic dysfunction. * LVEF 65%. Left Atrium * Normal left atrial size. Mitral Valve * Normal mitral valve structure. * No mitral stenosis. * Mild mitral annular calcification * Trace mitral regurgitation. Aortic Valve * No aortic regurgitation. * Trileaflet aortic valve. * Normal aortic valve structure. * No aortic stenosis. Tricuspid Valve * Tricuspid valve not well visualized. * Trace tricuspid regurgitation. * Estimated RA pressure is 3 mmHg. * Estimated RVSP is 27 mmHg. * No pulmonary hypertension. Pulmonic Valve * Pulmonic valve is not well visualized. * No pulmonic stenosis. * Trace pulmonic regurgitation. Pulmonary Artery * Pulmonary artery not well visualized. Right Ventricle * Dilated RV with normal function. Right Atrium * Mildly dilated right atrium. Interatrial Septum * No evidence of PFO by color Doppler. * No evidence of PFO with agitated saline contrast. Pericardium * There is no pericardial effusion present. IVC * Normal IVC dimensions and inspiratory collapse. Aorta * Normally sized aortic root. History Hypertension Diabetes Hypercholesteremia Years 51 Packs 3 Family History of CAD History of CAD/PTCA Myocardial Infarction Coronary Artery Bypass Graft Congestive Heart Failure Contrast: Agitated saline 20 ml. Measurements: BP: 160/ 70 2D Normal Values RVIDd: 4.10 cm <2.7 cm IVSd: 1.30 cm 0.6 - 1.0 cm LVIDd: 4.80 cm 3.7 - 5.6 cm LVPWd: 1.30 cm 0.6 - 1.1 cm LVIDs: 2.90 cm 1.5 - 3.6 cm LA: 4.50 cm 2.0 - 4.0cm %FS: 39.60 cm >25 % LVOT Diam: 2.00 cm LA volume: 111 Mitral Valve Peak E:.98 m/sec Peak A:1.01 m/sec E/A Ratio:1 Peak E' Lat [place]:11.1 cm/s Peak E' Med [place]:7.99 cm/s E/E' Lat Ratio:8.8 E/E' Med Ratio:12.2 Tricuspid Valve TV Regurg Peak Grad: 24.00mmHg TV Regurg Peak [place]: 2.44m/sec Updated by Lelo Bell on 10/05/2016 12:14:44 PM electronically signed on 10/05/2016 12:15:35 PM with status of Final Wall Motion Byrd: 1=Normal, 2=Hypokinesis, 3=Akinesis, 4=Dyskinesis, 5=Aneurysmal, 6=Hyperkinetic, X=Not Visualized (Blank)=Missing
[2016-10-05] MEDS ORDERED: 0.9 % Sodium Chloride 500 ML IVC ONE (13:15)
--- NOTE | 2016-10-05 19:48 | Carotid Imaging Report ---
Carotid Duplex Patient Name:Malick Rivera Order Number:[id number] Procedure Date:10/05/2016 Date:2Age:75 yrs Gender:Male Lt BP:160 / 70 mmHg Rt.BP:159 / 74 mmHgHeart Rate: Location:[facility] Room #: [id number] Fourth Officer:Tim Torres RN Referring MD:Alonzo Olivera DO design maker:None Reading MD:Jt Bernardo MD , FACS Primary Indications:Transient Ischemic Attack Risk Factors Yes/No Hypertension Yes Diabetes Yes Hypercholesterolemia Yes Smoker Previous Yes Hx of TIA Yes Hx of CVA Yes Anticoagulants Yes Hx of CAD/PTCA Yes Impressions: Findings: Bilateral carotid systems have nonstenotic plaque. Recommendations: Test completed on 10/05/2016 at 11:10:00 am. Findings Carotid Duplex: Right: There is nonstenotic plaque in the right proximal common carotid artery with a PSV of 93 cm/s and a EDV of 13 cm/s. There is smooth heterogeneous plaque. The right mid common carotid artery has a PSV of 92 cm/s and a EDV of 14 cm/s. The right distal common carotid artery has a PSV of 48 cm/s and a EDV of 9 cm/s. There is nonstenotic plaque in the right bifurcation with a PSV of 46 cm/s and a EDV of 9 cm/s. There is smooth heterogeneous plaque. There is nonstenotic plaque in the right proximal internal carotid artery with a PSV of 41 cm/s and a EDV of 8 cm/s. There is smooth homogeneous plaque. The right mid internal carotid artery has a PSV of 54 cm/s and a EDV of 13 cm/s. The right distal internal carotid artery has a PSV of 59 cm/s and a EDV of 16 cm/s. The right eca has turbulent flow with plaque with a PSV of 363 cm/s and a EDV of 18 cm/s. The right vertebral artery has a PSV of 28 cm/s and a EDV of 8 cm/s. Left: There is nonstenotic plaque in the left proximal common carotid artery with a PSV of 100 cm/s and a EDV of 14 cm/s. There is smooth heterogeneous plaque. The left mid common carotid artery has a PSV of 76 cm/s and a EDV of 16 cm/s. The left distal common carotid artery has a PSV of 82 cm/s and a EDV of 17 cm/s. There is nonstenotic plaque in the left bifurcation with a PSV of 73 cm/s and a EDV of 16 cm/s. There is smooth heterogeneous plaque. There is nonstenotic plaque in the left proximal internal carotid artery with a PSV of 65 cm/s and a EDV of 16 cm/s. There is smooth homogeneous plaque. The left mid internal carotid artery has a PSV of 80 cm/s and a EDV of 21 cm/s. The left distal internal carotid artery has a PSV of 38 cm/s and a EDV of 11 cm/s. There is nonstenotic plaque in the left eca with a PSV of 96 cm/s and a EDV of 12 cm/s. The left vertebral artery has a PSV of 41 cm/s and a EDV of 10 cm/s. Prior Study: No prior study available for comparison. Carotid Results Right PSV EDV Assessment Proximal CCA 93 13 Non Stenotic Plaque Mid CCA 92 14 Normal Distal CCA 48 9 Normal Bifurcation 46 9 Non Stenotic Plaque Proximal ICA 41 8 Non Stenotic Plaque Mid ICA 54 13 Normal Distal ICA 59 16 Normal ECA 363 18 Atypical flow Vertebral Artery 28 8 Normal Left PSV EDV Assessment Proximal CCA 100 14 Non Stenotic Plaque Mid CCA 76 16 Normal Distal CCA 82 17 Normal Bifurcation 73 16 Non Stenotic Plaque Proximal ICA 65 16 Non Stenotic Plaque Mid ICA 80 21 Normal Distal ICA 38 11 Normal ECA 96 12 Non Stenotic Plaque Vertebral Artery 41 10 Normal Ratio's Right ICA/CCA Ratio: 0.64 ICA/CCA Values: 59/92 Left ICA/CCA Ratio: 1.05 ICA/CCA Values: 80/76 Updated by Jt Bernardo MD, FACS on 10/05/2016 7:43:54 PM Jt Bernardo MD electronically signed on 10/05/2016 7:44:38 PM with status of Final
[2016-10-05] MEDS ORDERED: Insulin LISPRO 300 UNITS/3 ML VIAL SQ SCH (21:00)
[2016-10-06] MEDS: *HR* Heparin 5,000 UNIT/ML VIAL SQ SCH (05:16)
[2016-10-06 06:50] LABS: Basophils % 0.6 %; Eosinophils # 0.4 K/mcL (0.0-0.6); Eosinophils % 4.9 %; Hematocrit 32.9 % (37.5-50.1); Hemoglobin 10.9 g/dL (12.9-16.9); Immature Granulocytes % 0.3 % (0-4); Lymphocytes # 1.5 K/mcL (0.6-4.6); Lymphocytes % 21.1 %; Mean Corpuscular HGB Conc 33.1 g/dL (31.6-35.5); Mean Corpuscular Hemoglobin 30.1 pg (28.0-33.3); Mean Corpuscular Volume 90.9 fL (83.0-100.0); Mean Platelet Volume 10.4 fL (9.4-12.4); Monocytes # 0.7 K/mcL (0.0-1.3); Monocytes % 9.6 %; Neutrophils # 4.6 K/mcL (1.6-8.9); Platelet Count 163 K/mcL (140-400); Red Blood Count 3.62 M/mcL (4.19-5.50); Red Cell Distribution Width 12.7 % (11.5-14.5); Segmented Neutrophils % 63.5 %
[2016-10-06 07:02] LABS: Calcium 8.6 mg/dL (8.6-10.8); Potassium 4.2 mEq/L (3.5-4.5)
[2016-10-06] MEDS: Insulin LISPRO 300 UNITS/3 ML VIAL SQ SCH ×2 (07:51→12:36)
--- NOTE | 2016-10-06 09:54 | Neurology Progress Note ---
Date of Encounter: 10/06/16 Time of Encounter: 09:52 Assessment and Plan (1) TIA (transient ischemic attack) Current Visit: Yes Status: Acute MRA of the neck negative. There is consideration given the patient past history of CVA that this could be a TIA. In addition the consideration that this could be an episode of vertigo associated with peripheral etiology. The patient should begin aspirin daily therapy at 325 mg as well as daily statin which he is currently taking. The patient can follow up with neurology outpatient. Qualifiers: Transient cerebral ischemia type: unspecified Qualified Code(s): G45.9 - Transient cerebral ischemic attack, unspecified (2) CVA (cerebral vascular accident) Current Visit: Yes Status: Chronic Noted 4 years ago. Qualifiers: CVA mechanism: unspecified Qualified Code(s): I63.9 - Cerebral infarction, unspecified (3) Hypertension Current Visit: Yes Status: Chronic Qualifiers: Hypertension type: essential hypertension Qualified Code(s): I10 - Essential (primary) hypertension (4) CKD (chronic kidney disease) stage 3, GFR 30-59 ml/min Current Visit: Yes Status: Chronic (5) Insulin dependent diabetes mellitus Current Visit: No Status: Chronic Subjective Principal diagnosis: Dizziness Interval history: The patient states he is feeling much better at this time. He denies any further dizzy episodes. The patient denies any other complaints. He states he is ready to go back to his extended care facility. Patient's MRA of the neck demonstrated no acute findings. Objective - Constitutional Vitals: Temp Pulse Resp BP Pulse Ox 98.0 F 55 17 167/87 97 10/06/16 06:53 10/06/16 06:53 10/06/16 06:53 10/06/16 06:53 10/06/16 06:53 General appearance: Present: A&O X 3, pleasant, no acute distress, answers questions appropriately - Neurological Exam Sensorimotor examination: Present: intact Motor Examination: Present: full strength in all major muscle groups Motor examination - right side: 5/5: deltoids, biceps, triceps, wrist flexion, wrist extension, tactical debriefer, hip flexors, tibialis Anterior, quadriceps, toe extension (EHL), plantarflexion Motor examination - left side: 5/5: deltoids, biceps, triceps, wrist flexion, wrist extension, hip flexors, tactical debriefer, quadriceps, tibialis Anterior, toe extension (EHL), plantarflexion Sensation intact: Present: intact Reflexes: Biceps: 2+, Brachioradialis: 2+, Patella: 2+ Mental Status Examination: Present: awake, alert, oriented to person, oriented to place, oriented to time, follows commands appropriately, answers questions appropriately, no agnosia, no aphasia, no aproxia Cranial nerve examination: Present: PERRL, EOMI, visual lambert intact, corneal reflexes brisk symmetrically, sensory to face intact, mastication intact, no facial asymmetry is present, no dysarthria, hearing is intact symmetrically, soft palate elevates bilaterally upon phonation, gag reflex intact, flexes SCM and trapezius muscles symmetrically with full power, tongue protrudes midline, no atrophy or facial fasiculations present Cerebellar examination: Present: no dysmetria, performs finger to nose and heel to benitez symmetrically without ataxia, no difficulty with rapid alternating movements Results - Laboratory Findings CBC and BMP: 10/06/16 05:57 10/06/16 05:57 Abnormal lab findings: Abnormal lab results RBC 3.62 M/mcL (4.19-5.50) L 10/06/16 05:57 Hgb 10.9 g/dL (12.9-16.9) L 10/06/16 05:57 Hct 32.9 % (37.5-50.1) L 10/06/16 05:57 Chloride 110 mEq/L (98-109) H 10/06/16 05:57 BUN 32 mg/dL (8-26) H 10/06/16 05:57 Creatinine 1.70 mg/dL (0.72-1.25) H 10/06/16 05:57 Est GFR ( Amer) 48 (> 60) L 10/06/16 05:57 Est GFR (Non-Af Amer) 40 (> 60) L 10/06/16 05:57 POC Glucose 130 (58-89) H 10/05/16 20:13 Consult Discharge Plan - Plan Referrals: NO,PCP [Primary Care Provider] - - Attending Attestation I examined this patient and my medical decision-making was reviewed with the Resident Physician. I agree with the documented findings, disposition and treatment plan as described except to the extent set forth below.
[2016-10-06] MEDS: Aspirin 81 MG TAB.CHEW PO SCH (09:58)
[2016-10-06 11:23] VITALS: BP 156/91
--- NOTE | 2016-10-06 14:09 | Discharge Summary ---
Date of Encounter: 10/06/16 Time of Encounter: 12:00 - Discharge Diagnosis (1) TIA (transient ischemic attack) Priority: Primary Status: Acute Qualifiers: Transient cerebral ischemia type: unspecified Qualified Code(s): G45.9 - Transient cerebral ischemic attack, unspecified (2) Vertigo Priority: Primary Status: Acute (3) Diabetes Priority: Secondary Status: Acute Qualifiers: Diabetes mellitus type: type 2 Diabetes mellitus complication status: with kidney complications Diabetes mellitus complication detail: with chronic kidney disease Diabetes mellitus snf insulin use: with snf use Chronic kidney disease stage: stage 3 (moderate) Qualified Code(s): E11.22 - Type 2 diabetes mellitus with diabetic chronic kidney disease; N18.3 - Chronic kidney disease, stage 3 (moderate); Z79.4 - USP (current) use of insulin (4) Hypertension Priority: Secondary Status: Chronic Qualifiers: Hypertension type: essential hypertension Qualified Code(s): I10 - Essential (primary) hypertension (5) CAD (coronary artery disease) Priority: Secondary Status: Chronic Qualifiers: Coronary Disease-Associated Artery/Lesion type: bypass graft [place] vs. transplanted heart: [place] heart Associated angina: without angina Qualified Code(s): I25.810 - Atherosclerosis of coronary artery bypass graft(s) without angina pectoris (6) CKD (chronic kidney disease) Priority: Secondary Status: Chronic Qualifiers: Chronic kidney disease stage: stage 3 (moderate) Qualified Code(s): N18.3 - Chronic kidney disease, stage 3 (moderate) (7) Frequent falls Priority: Secondary Status: Chronic - Discharge Medications Prescriptions: Aspirin 325 mg PO DAILY #30 tablet Home Medications: Atorvastatin [Lipitor] 10 mg PO HS 07/06/16 [History] Carvedilol 3.125 mg PO BID 07/06/16 [History] Ferrous Sulfate 325 mg PO DAILY 07/06/16 [History] Insulin Glargine [Lantus] 10 unit SQ HS 07/06/16 [History] Lisinopril 2.5 mg PO DAILY 07/06/16 [History] Nitroglycerin [Nitrostat] 0.4 mg SL Q5M PRN 07/06/16 [History] Omeprazole [PriLOSEC] 20 mg PO DAILY 07/06/16 [History] Paroxetine HCl [Paxil] 10 mg PO QAM 07/06/16 [History] Benzocaine/Menthol [Chloraseptic Max Lozenge] 1 each MM Q2H PRN 10/04/16 [ History] Aspirin 325 mg PO DAILY #30 tablet 10/06/16 [Rx] Allergies/Adverse Reactions: Allergies morphine Adverse Reaction (Verified 10/04/16 15:00) Unknown via ECF list Procedures/tests Complete & Pending: Procedures Performed prior 72 hours Category Date Time Status MR angio neck wo/w con [MR] Routine MRI 10/05/16 13:15 Completed - Notes to Outpatient Provider Patient's aspirin dose has been increased from 81 to 325mg daily per neurology. Date of admission: 10/05/16 08:21 Primary care physician: PCP PIERRE Discharging clinician: Genie Olivera Anticipated date of discharge: 10/06/16 - Patient Status Disposition: Transfer SNF Condition: Good Overall status at discharge: patient is back to baseline - Discharge Instructions Follow Up With: NO,PCP [Primary Care Provider] - - Diet and Activity Activity: as per physical therapy, increase activity as tolerated Diet: diabetic diet Interval History: Mr. Rivera is a 75 year old male who presents to the emergency department with dizziness. He currently resides in [facility] and states that he developed sudden onset dizziness when he was performing physical therapy earlier this morning. He describes starting off at a sitting position and while trying to stand he became dizzy and felt the room was spinning. He does admit to having a difficult hearing out of both ears but denies any changes in his vision, losing consciousness, headache, chest pain, shortness of breath, nausea. He never had anything like this happen to past but does report a history of migraines and sustained a stroke 4 years ago without any residual deficits. He also reports a history of frequent falls, claiming to have fallen once to twice a month over the past 5 years. He reports the falls are a result of losing balance, and denies ever losing any consciousness or tripping. Of note , he does have history of bypass in 1989 and also in the but he is unsure of what time and will have stent was placed. He claims he was previously on Coumadin over a year ago for atrial fibrillation, but there is no documentation of this. Hospital course: Mr. Rivera is a 75 year old male admitted for vertigo. He was placed on continuous cardiac monitoring, echo and carotid duplex has been done, results unremarkable. Neurology consult called and saw patient. Consider patient's symptoms is kind of TIA. Will increase aspirin dose from 81 to 325mg per neurology. Pt was seen and examined. He has no further vertigo or dizziness. Vitals are stable. Patient is stable to transfer back to group home. Follow up with neurology as outpatient - Time Spent with Patient Total time spent providing and/or coordinating discharge services: 40 minutes Greater than 30 minutes - Constitutional Vitals: Temp Pulse Resp BP Pulse Ox 98.1 F 53 16 156/91 94 L 10/06/16 11:19 10/06/16 11:19 10/06/16 11:19 10/06/16 11:19 10/06/16 11:19 General appearance: Present: cooperative, A&O X 3, pleasant, no acute distress, answers questions appropriately - Head Head exam: Present: atraumatic, normocephalic - Eye Eye exam: Present: PERRL, conjuntiva pink, sclera anicteric Pupils: Present: PERRL - Neck Neck exam general surgery: Present: supple, trachea midline. Absent: lymphadenopathy - Respiratory Respiratory exam: Present: CTAB. Absent: accessory muscle use, rales, rhonchi, wheezes - Cardiovascular Cardiovascular exam: Present: RRR, +S1, +S2. Absent: diastolic murmur, gallop, rubs, systolic murmur - GI/Abdominal GI/Abdominal exam: Present: normal bowel sounds, soft, no peritoneal signs. Absent: distended, tenderness - Extremities Exam Extremities exam: Present: warm, radial pulses palpable and symetrical. Absent : calf tenderness, cyanotic, pedal edema - Neurological Exam Neurological exam: Present: CN II-XII intact, oriented X3, no focal deficits. Absent: pronater drift, facial droop, speech deficit - Skin Skin exam: Present: dry, intact
--- NOTE | 2016-10-06 14:18 | Physician Discharge Referral ---
[facility] Referral Info Transfer To: F Provider in Charge after Transfer: Other - Diagnosis (1) TIA (transient ischemic attack) Status: Acute (2) Vertigo Status: Acute (3) Diabetes Status: Acute (4) Hypertension Status: Chronic (5) CAD (coronary artery disease) Status: Chronic (6) CKD (chronic kidney disease) Status: Chronic (7) Frequent falls Status: Chronic - Transfer Medications Prescriptions: Aspirin 325 mg PO DAILY #30 tablet Home Medications: Atorvastatin [Lipitor] 10 mg PO HS 07/06/16 [History] Carvedilol 3.125 mg PO BID 07/06/16 [History] Ferrous Sulfate 325 mg PO DAILY 07/06/16 [History] Insulin Glargine [Lantus] 10 unit SQ HS 07/06/16 [History] Lisinopril 2.5 mg PO DAILY 07/06/16 [History] Nitroglycerin [Nitrostat] 0.4 mg SL Q5M PRN 07/06/16 [History] Omeprazole [PriLOSEC] 20 mg PO DAILY 07/06/16 [History] Paroxetine HCl [Paxil] 10 mg PO QAM 07/06/16 [History] Benzocaine/Menthol [Chloraseptic Max Lozenge] 1 each MM Q2H PRN 10/04/16 [ History] Aspirin 325 mg PO DAILY #30 tablet 10/06/16 [Rx] Allergies/Adverse Reactions: Allergies morphine Adverse Reaction (Verified 10/04/16 15:00) Unknown via ECF list - Respiratory Orders Smoking Cessation: Smoking cessation has been advised. For more information, call the [place] Tobacco Quit Line at 5-490-WOBB-NOW. - Advance Directives Code Status: Full Code - Rehabiliation Orders Rehab Orders: Evaluation for Physical Therapy, Evaluation for Occupational Therapy - Diet Orders No Concentrated Sweets (Diabetes diet) CERTIFICATION: I certify that the transfer of the above named patient to an Extended Care Facility is necessary for the continuing treatment of the diagnosis listed. The above information is true and accurate reflection of patient's current condition. Confidential - Redisclosure prohibited without a patient's written consent.
== END 2016-10-06 17:18 | DRG 69 ==
LOC: 2NENU 13:08 → EMEROO 13:08 → 2NENU 18:13
PROVIDERS: ADMIT Nurse Practitioner Acute Care; ATTEND Internal Medicine